=== PATIENT | male | born 1955 | race Caucasian/White ===

== ENCOUNTER 2017-12-09 10:04 | Emergency (ER) | payer OTHER ==
[~2017-12-09] VITALS: Ht 172.7 cm; Wt 87.7 kg
[2017-12-09 10:11] VITALS: BP 139/82
[2017-12-09] MEDS ORDERED: ibuprofen tablet 400 MG TABLET PO ONE (11:10)
[2017-12-09] MEDS ORDERED: HYDR-4353 PO (11:15)
== END 2017-12-09 12:09 | disposition home or self-care (01) ==
LOC: ER 10:04
DX: S52.591A Other fractures of lower end of right radius, initial encounter for closed fracture (principal); S52.611A Displaced fracture of right ulna styloid process, initial encounter for closed fracture; I10 Essential (primary) hypertension; W17.89XA Other fall from one level to another, initial encounter; Y93.89 Activity, other specified; Y92.89 Other specified places as the place of occurrence of the external cause; Y99.9 Unspecified external cause status
CPT/HCPCS: 29125; 71045; 73110; 99284

== ENCOUNTER 2019-03-22 13:01 | Inpatient (IN) | payer BC, MEDICARE ==
[~2019-03-22] VITALS: Ht 172.7 cm; Wt 102.3 kg
[2019-03-22 13:26] LABS: BASOPHILS # (AUTO) 0.1 X10'3 (0-0.2); BASOPHILS % (AUTO) 0.7 % (0-1); EOSINOPHILS # (AUTO) 0.1 X10'3 (0-0.9); EOSINOPHILS % (AUTO) 1.2 % (0-6); HEMOGLOBIN 17.6 g/dl (14.0-17.9); LYMPHOCYTES # (AUTO) 1.7 X10'3 (1.1-4.8); LYMPHOCYTES % (AUTO) 18.1 % (21-51); MEAN CORPUSCULAR HEMOGLOBIN 28.7 PG (27.0-31.0); MEAN CORPUSCULAR HGB CONC 34.6 g/dL (33.0-36.5); MEAN PLATELET VOLUME 8.8 FL (7.4-10.4); MONOCYTES # (AUTO) 0.7 X10'3 (0-0.9); NEUTROPHILS # (AUTO) 6.7 X10'3 (1.8-7.7); PLATELET COUNT 209 X10'3 (140-440); RED BLOOD COUNT 6.14 X10'6 (4.70-6.10); RED CELL DISTRIBUTION WIDTH 13.4 % (11.5-14.5); WHITE BLOOD COUNT 9.3 X10'3 (4.5-11.0)
[2019-03-22] MEDS ORDERED: heparin 10,000 units/1 ML INJ IV ONE ×3 (14:00→16:00)
[2019-03-22 14:15] LABS: PARTIAL THROMBOPLASTIN TIME 28 SECONDS (22-32)
[2019-03-22 14:22] LABS: ALANINE AMINOTRANSFERASE 62 U/L (12-78); ALBUMIN 4.3 G/DL (3.4-5.0); ALBUMIN/GLOBULIN RATIO 1.2 (1.1-1.5); ALKALINE PHOSPHATASE 70 IU/L (46-116); ANION GAP 11 (8-16); ASPARTATE AMINO TRANSFERASE 38 U/L (10-37); BILIRUBIN,TOTAL 0.6 MG/DL (0.1-1.0); BLOOD UREA NITROGEN 13 MG/DL (7-18); BUN/CREATININE RATIO 12.7 (5.4-32.0); CALCIUM 9.4 MG/DL (8.5-10.1); CHLORIDE 99 MMOL/L (99-107); CREATININE 1.02 MG/DL (0.60-1.10); GLUCOSE 109 MG/DL (70-104); POTASSIUM 3.9 MMOL/L (3.5-5.1); SODIUM 136 MMOL/L (135-145); TOTAL CARBON DIOXIDE 25.7 MMOL/L (24-32); eGFR 73 ML/MIN
[2019-03-22] MEDS: heparin 25,000 UNIT/250ml bag 250 ML IV SCH ×2 (14:29→22:30)
[2019-03-22] MEDS ORDERED: FLO0.4C PO ×2 (14:42→14:43)
[2019-03-22] MEDS ORDERED: IBUP-1986 PO ×2 (14:42→14:43)
[2019-03-22] MEDS ORDERED: FINA5TAB12 PO ×2 (14:42→14:43)
[2019-03-22] MEDS ORDERED: LISI1TAB28 PO ×2 (14:42→14:43)
[2019-03-22] MEDS ORDERED: aspirin 325mg tablet PO ONE (14:55)
[2019-03-22] MEDS ORDERED: metoprolol tartrate 50mg tablet PO ONE (14:55)
[2019-03-22] MEDS ORDERED: heparin 25,000 UNIT/250ml bag 250 ML IV SCH (15:59)
[2019-03-22] MEDS ORDERED: ipratropium/albuterol 3ml nebule NEB PRN (16:00)
[2019-03-22] MEDS ORDERED: haloperidol 5mg tablet PO PRN (16:00)
[2019-03-22] MEDS ORDERED: acetaminophen 325mg tablet PO PRN (16:00)
[2019-03-22] MEDS ORDERED: mag hydrox/Alum hydrox/simeth 30ml oral suspension PO PRN (16:00)
[2019-03-22] MEDS ORDERED: potassium Cl 20 mEq SR tablet PO PRN ×4 (16:00→19:20)
[2019-03-22] MEDS ORDERED: heparin 10,000 units/1 ML INJ IV PRN (16:00)
[2019-03-22] MEDS ORDERED: magnesium 4gm in 100ml NS 100 ML IV PRN ×2 (16:00→19:20)
[2019-03-22] MEDS ORDERED: haloperidol lactate 5mg/ml inj IM PRN (16:00)
[2019-03-22] MEDS ORDERED: magnesium Cl slow-release 64mg tablet PO PRN ×2 (16:00→19:20)
[2019-03-22] MEDS ORDERED: LORazepam 2 mg/ml vial IV PRN (16:00)
[2019-03-22] MEDS ORDERED: morphine 2 MG/ML inj. syringe IV PRN ×2 (16:00)
[2019-03-22] MEDS ORDERED: ondansetron/PF 4mg/2ml inj IV PRN (16:00)
[2019-03-22] MEDS ORDERED: magnesium 2GM in 50ml NS 50 ML IV PRN (16:00)
[2019-03-22] MEDS ORDERED: potassium CL 10mEq/100ml bag 100 ML IV PRN ×3 (16:00→19:20)
[2019-03-22] MEDS ORDERED: thiamine inj. 100 MG in normal saline 100ml IV soln 100 ML IV ONE (16:00)
--- NOTE | 2019-03-22 16:41 | NUR ---
SECOND IV STARTED AND SECOND TROPONIN DRAWN.
--- NOTE | 2019-03-22 16:57 | NUR ---
SECOND TROPONIN BACK AT 4.[address] PRESCOTT NOTIFIED, DR. RYANN ORTEGA AND HIS OFFICE GIVEN THE DETAILS FOR HIM TO CALL ME BACK.
--- NOTE | 2019-03-22 17:01 | NUR ---
DR. GARZON RETURNED CALL, NOTIFIED OF TROPONINS. NO NEW ORDERS.
[2019-03-22 18:00] VITALS: BP 132/82
[2019-03-22] MEDS: atorvastatin 20mg tablet PO SCH (18:24)
--- NOTE | 2019-03-22 18:43 | NUR ---
Problems reprioritized. Patient report given, questions answered & plan of care reviewed with Libia MAY.
--- NOTE | 2019-03-22 19:18 | NUR ---
MADAN ORDERED NPO AFTER MIDNIGHT, PT SIGN CONSENT FOR CATH WITH POSSIBLE STENT, AND K+ AND MAG REPLACEMENT TO OVER 4 AND 2.
[2019-03-22] MEDS ORDERED: K and/or MAG REPLACEMENT MC SCH (19:20)
[2019-03-22] MEDS: K and/or MAG REPLACEMENT MC SCH (20:00)
[2019-03-22] MEDS: tamsulosin 0.4mg capsule PO SCH (21:54)
[2019-03-22] MEDS: docusate sod 100mg capsule PO SCH (21:54)
[2019-03-22] MEDS: metoprolol tartrate 50mg tablet PO SCH (21:54)
[2019-03-22 22:00] VITALS: BP 120/87
[2019-03-22] MEDS: tirofiban 5mg in NS 100mL 100 ML IV SCH ×2 (22:12→23:26)
[2019-03-22] MEDS: heparin 10,000 units/1 ML INJ IV PRN (22:33)
[2019-03-23] VITALS (12 sets, daily range): BP systolic 93–118; BP diastolic 49–76
[2019-03-23 03:05] LABS: BASOPHILS # (AUTO) 0.1 X10'3 (0-0.2); BASOPHILS % (AUTO) 0.9 % (0-1); EOSINOPHILS # (AUTO) 0.2 X10'3 (0-0.9); EOSINOPHILS % (AUTO) 1.9 % (0-6); HEMATOCRIT 48.8 % (42.0-52.0); HEMOGLOBIN 16.6 g/dl (14.0-17.9); LYMPHOCYTES # (AUTO) 4.1 X10'3 (1.1-4.8); LYMPHOCYTES % (AUTO) 41.8 % (21-51); MEAN CORPUSCULAR HEMOGLOBIN 28.8 PG (27.0-31.0); MEAN CORPUSCULAR HGB CONC 34.1 g/dL (33.0-36.5); MEAN CORPUSCULAR VOLUME 84.5 FL (78-98); MEAN PLATELET VOLUME 9.1 FL (7.4-10.4); MONOCYTES # (AUTO) 0.8 X10'3 (0-0.9); MONOCYTES % (AUTO) 7.9 % (2-12); NEUTROPHILS # (AUTO) 4.7 X10'3 (1.8-7.7); NEUTROPHILS % (AUTO) 47.5 % (42-75); PLATELET COUNT 199 X10'3 (140-440); RED BLOOD COUNT 5.77 X10'6 (4.70-6.10); RED CELL DISTRIBUTION WIDTH 13.6 % (11.5-14.5); WHITE BLOOD COUNT 9.8 X10'3 (4.5-11.0)
[2019-03-23 03:22] LABS: ALANINE AMINOTRANSFERASE 52 U/L (12-78); ALBUMIN 3.7 G/DL (3.4-5.0); ALBUMIN/GLOBULIN RATIO 1.1 (1.1-1.5); ALKALINE PHOSPHATASE 57 IU/L (46-116); ANION GAP 12 (8-16); ASPARTATE AMINO TRANSFERASE 51 U/L (10-37); BILIRUBIN,TOTAL 0.5 MG/DL (0.1-1.0); BLOOD UREA NITROGEN 12 MG/DL (7-18); BUN/CREATININE RATIO 14.1 (5.4-32.0); CALCIUM 8.8 MG/DL (8.5-10.1); CHLORIDE 102 MMOL/L (99-107); CREATININE 0.85 MG/DL (0.60-1.10); GLUCOSE 88 MG/DL (70-104); SODIUM 137 MMOL/L (135-145); eGFR 90 ML/MIN
[2019-03-23 03:24] LABS: AMYLASE 30 U/L (25-115); CHOL/HDL RATIO 5.1 (0.00-4.99); CHOLESTEROL 195 MG/DL (0-200); HDL CHOLESTEROL 38 MG/DL (35-60); LDL CHOLESTEROL 125 MG/DL (50-100); LIPASE 149 U/L (73-393); MAGNESIUM 1.9 MG/DL (1.5-2.4); PHOSPHORUS 4.3 MG/DL (2.3-4.5); TRIGLYCERIDES 232 MG/DL (20-135)
[2019-03-23 03:29] LABS: POTASSIUM 3.8 MMOL/L (3.5-5.1)
[2019-03-23] MEDS: tirofiban 5mg in NS 100mL 100 ML IV SCH (04:48)
[2019-03-23] MEDS: heparin 10,000 units/1 ML INJ IV PRN (05:59)
[2019-03-23] MEDS: heparin 25,000 UNIT/250ml bag 250 ML IV SCH (06:04)
[2019-03-23] MEDS ORDERED: verapamil 2.5 mg/ml inj IV ONE (06:06)
[2019-03-23] MEDS ORDERED: LIDOcaine 1% (10mg/ml)w/preservative injection 20ml MDV ONE (06:06)
[2019-03-23] MEDS ORDERED: midazolam 2 mg/2 ml injection ONE (06:06)
[2019-03-23] MEDS ORDERED: nitroGLYCERIN-Tridil 50MG/D5W 250 ML IV ONE (06:06)
[2019-03-23] MEDS ORDERED: fentaNYL/PF 50MCG/1 ML 2ML syringe ONE (06:06)
[2019-03-23] MEDS ORDERED: heparin 1,000unit/ml 10ml vial 10 ML ONE (06:06)
[2019-03-23] MEDS ORDERED: iohexol 350 MG/ML 50ML vial IV ONE (06:07)
[2019-03-23] MEDS ORDERED: iohexol 350MG/ML 100ml bottle IV ONE ×3 (06:07→07:49)
--- NOTE | 2019-03-23 06:30 | NUR ---
Patient in room MED 311. I have received report from Libia MAY and had the opportunity to ask questions and assume patient care.
[2019-03-23] MEDS ORDERED: FOLIC ACID IV SCH (08:00)
[2019-03-23] MEDS: K and/or MAG REPLACEMENT MC SCH ×2 (08:00→20:00)
[2019-03-23] MEDS: nitroGLYCERIN 0.4mg/hour patch TD SCH ×2 (08:00→11:39)
[2019-03-23] MEDS: docusate sod 100mg capsule PO SCH ×2 (08:00→20:00)
[2019-03-23] MEDS ORDERED: MVI, adult No.4 with vit. K 10 ML in dextrose 5% water 500ml 500 ML IV SCH ×2 (08:00)
[2019-03-23] MEDS ORDERED: THIAMINE IV SCH (08:00)
[2019-03-23] MEDS ORDERED: HYDROchlorothiazide 25mg tablet PO SCH (08:00)
[2019-03-23] MEDS: atorvastatin 20mg tablet PO SCH (08:00)
[2019-03-23] MEDS ORDERED: lisinopril 20mg tablet PO SCH (08:00)
[2019-03-23] MEDS ORDERED: NORMAL SALINE IV SCH (08:00)
[2019-03-23] MEDS ORDERED: ticagrelor 90mg tablet ONE (08:05)
--- NOTE | 2019-03-23 09:00 | NUR ---
All ordered am medications given after pt returned from laboratory sampler.
[2019-03-23] MEDS: finasteride 5mg tablet PO SCH (11:35)
[2019-03-23] MEDS: metoprolol tartrate 50mg tablet PO SCH ×2 (11:37→21:09)
[2019-03-23] MEDS: tamsulosin 0.4mg capsule PO SCH ×2 (11:39→21:12)
--- NOTE | 2019-03-23 12:00 | NUR ---
Presure Wrist band to R wrist d/jyothi. No s/s of complications. No hematoma. Pt has tolerated all well. Sterile gauze placed over covered with Opsite. Will continue to monitor for bleeding.
[2019-03-23] MEDS: aspirin 81mg tab.chew PO SCH (12:14)
[2019-03-23] MEDS ORDERED: proCHLORperazine 10 MG/2 ml inj IV PRN (12:15)
[2019-03-23] MEDS ORDERED: cyclobenzaprine 10mg tablet PO PRN (12:15)
[2019-03-23] MEDS ORDERED: OXAZEpam 15mg capsule PO PRN (12:15)
[2019-03-23] MEDS ORDERED: acetaminophen 325mg tablet PO PRN (12:15)
[2019-03-23] MEDS ORDERED: HYDROcodone/acetaminophen 10/325mg tab PO PRN ×2 (12:15)
[2019-03-23] MEDS ORDERED: magnesium hydroxide 30ml (MOM) UD suspension PO PRN (12:15)
--- NOTE | 2019-03-23 13:12 | NUR ---
PAGER ID: [phone] MESSAGE: [phone]: JOEL Mendoza ordered nitro patch on admit. patient currently CP free, BP well controlled 100s/60s nurse Azalia [phone]
--- NOTE | 2019-03-23 13:12 | NUR ---
Dr. Ware called back - new order received: d/c nitro patch
--- NOTE | 2019-03-23 18:00 | NUR ---
Patient in room MED 311. I have received report from JOAO MAY and had the opportunity to ask questions and assume patient care.
[2019-03-23] MEDS ORDERED: docusate sod 100mg capsule PO SCH (20:00)
[2019-03-23] MEDS: carVEDilol 3.125mg tablet PO SCH (21:06)
[2019-03-24 02:00] VITALS: BP 101/67
[2019-03-24 04:44] LABS: BASOPHILS # (AUTO) 0.1 X10'3 (0-0.2); BASOPHILS % (AUTO) 0.7 % (0-1); EOSINOPHILS # (AUTO) 0.2 X10'3 (0-0.9); EOSINOPHILS % (AUTO) 1.7 % (0-6); HEMATOCRIT 47.1 % (42.0-52.0); HEMOGLOBIN 16.1 g/dl (14.0-17.9); LYMPHOCYTES # (AUTO) 3.2 X10'3 (1.1-4.8); LYMPHOCYTES % (AUTO) 34.1 % (21-51); MEAN CORPUSCULAR HEMOGLOBIN 28.7 PG (27.0-31.0); MEAN CORPUSCULAR HGB CONC 34.2 g/dL (33.0-36.5); MEAN PLATELET VOLUME 8.9 FL (7.4-10.4); MONOCYTES # (AUTO) 0.9 X10'3 (0-0.9); MONOCYTES % (AUTO) 9.2 % (2-12); NEUTROPHILS # (AUTO) 5.2 X10'3 (1.8-7.7); NEUTROPHILS % (AUTO) 54.3 % (42-75); PLATELET COUNT 193 X10'3 (140-440); RED CELL DISTRIBUTION WIDTH 13.5 % (11.5-14.5); WHITE BLOOD COUNT 9.5 X10'3 (4.5-11.0)
[2019-03-24 04:57] LABS: ALANINE AMINOTRANSFERASE 49 U/L (12-78); ALBUMIN 3.7 G/DL (3.4-5.0); ALBUMIN/GLOBULIN RATIO 1.1 (1.1-1.5); ALKALINE PHOSPHATASE 57 IU/L (46-116); AMYLASE 28 U/L (25-115); ANION GAP 8 (8-16); ASPARTATE AMINO TRANSFERASE 37 U/L (10-37); BILIRUBIN,TOTAL 0.6 MG/DL (0.1-1.0); BLOOD UREA NITROGEN 11 MG/DL (7-18); BUN/CREATININE RATIO 12.8 (5.4-32.0); CALCIUM 8.9 MG/DL (8.5-10.1); CHLORIDE 103 MMOL/L (99-107); CREATININE 0.86 MG/DL (0.60-1.10); GLUCOSE 85 MG/DL (70-104); LIPASE 137 U/L (73-393); PHOSPHORUS 4.1 MG/DL (2.3-4.5); POTASSIUM 4.1 MMOL/L (3.5-5.1); SODIUM 136 MMOL/L (135-145); TOTAL CARBON DIOXIDE 24.8 MMOL/L (24-32); eGFR 89 ML/MIN
[2019-03-24 06:00] VITALS: BP 106/61
--- NOTE | 2019-03-24 06:15 | NUR ---
Patient in room MED 311. I have received report from YADIRA Reza and had the opportunity to ask questions and assume patient care.
--- NOTE | 2019-03-24 06:41 | NUR ---
Problems reprioritized. Patient report given, questions answered & plan of care reviewed with GUADALUPE MAY.
--- NOTE | 2019-03-24 06:55 | NUR ---
81mg dose of ASA appears to have not given on 03/23/19. I non-administered on eMAR. The eMAR is still showing Aggrastat as well. Patient is no longer receiving will d/c order.
[2019-03-24] MEDS ORDERED: folic acid 1mg tablet PO SCH (08:00)
[2019-03-24] MEDS ORDERED: thiamine 100mg tablet PO SCH (08:00)
[2019-03-24] MEDS ORDERED: ticagrelor 90mg tablet PO SCH (08:00)
[2019-03-24] MEDS ORDERED: lisinopril 10 MG tablet PO SCH (08:00)
[2019-03-24] MEDS ORDERED: multivitamins, therapeutics tablet PO SCH (08:00)
[2019-03-24] MEDS: aspirin 81mg tab.chew PO SCH (08:14)
[2019-03-24] MEDS: docusate sod 100mg capsule PO SCH (08:15)
[2019-03-24] MEDS: carVEDilol 3.125mg tablet PO SCH (08:16)
[2019-03-24] MEDS: tamsulosin 0.4mg capsule PO SCH (08:17)
[2019-03-24] MEDS: atorvastatin 20mg tablet PO SCH (08:18)
[2019-03-24] MEDS: finasteride 5mg tablet PO SCH (08:18)
[2019-03-24 08:22] VITALS: BP_SYST 101
[2019-03-24] MEDS: metoprolol tartrate 50mg tablet PO SCH (08:22)
[2019-03-24] MEDS: K and/or MAG REPLACEMENT MC SCH (08:28)
--- NOTE | 2019-03-24 10:31 | NUR ---
PAGER ID: [phone] MESSAGE: Dr. Ware, pt in , [facility] rm 11 on ACCE, ready to be d/c walke d 600 ft, asymptomatic, no CP. Waiting for d/c orders at your convenience. Thank you, Della Golden [phone]
[2019-03-24] MEDS ORDERED: ATOR20TA66 PO (11:23)
[2019-03-24] MEDS ORDERED: TICA90TA PO (11:23)
[2019-03-24] MEDS ORDERED: ASPI-1265 PO (11:23)
[2019-03-24] MEDS ORDERED: METO50TA16 PO (11:23)
--- NOTE | 2019-03-24 12:00 | NUR ---
All discharge instructions given in written form and verbally to the patient and his spouse. They both state that they have no questions regarding these instructions. The PIV was removed and the catheter was intact. Patient tolerated well and hemostasis achieved. All patient personal items taken with the patient and the patient was alert and oriented and left in stable condition by way of w/c/ Prescriptions called into [facility] pharmacy.
[2019-03-24] MEDS ORDERED: LORazepam 2 mg/ml vial IV PRN (16:00)
[2019-03-24] MEDS ORDERED: LORazepam 1 MG tablet PO PRN (16:00)
[2019-03-26] MEDS ORDERED: LORazepam 1 MG tablet PO PRN (16:00)
[2019-03-26] MEDS ORDERED: LORazepam 2 mg/ml vial IV PRN (16:00)
== END 2019-03-24 12:15 | disposition home or self-care (01) | DRG 247 ==
LOC: ER 13:01 → ED HOLD 16:08 → MED 3N 17:55
PROVIDERS: ADMIT Family Medicine; ATTEND Internal Medicine
PROC: 4A023N7 Measurement of Cardiac Sampling and Pressure, Left Heart, Percutaneous Approach (ICD-10-PCS; principal; 2019-03-23)
PROC: 027034Z Dilation of Coronary Artery, One Artery with Drug-eluting Intraluminal Device, Percutaneous Approach (ICD-10-PCS; 2019-03-23)
PROC: B2111ZZ Fluoroscopy of Multiple Coronary Arteries using Low Osmolar Contrast (ICD-10-PCS; 2019-03-23)
PROC: B2151ZZ Fluoroscopy of Left Heart using Low Osmolar Contrast (ICD-10-PCS; 2019-03-23)
DX: I21.4 Non-ST elevation (NSTEMI) myocardial infarction (principal); F17.210 Nicotine dependence, cigarettes, uncomplicated; I10 Essential (primary) hypertension; E78.5 Hyperlipidemia, unspecified; I20.0 Unstable angina; F10.20 Alcohol dependence, uncomplicated; J44.9 Chronic obstructive pulmonary disease, unspecified; N40.0 Benign prostatic hyperplasia without lower urinary tract symptoms; Z79.02 Long term (current) use of antithrombotics/antiplatelets; Z79.82 Long term (current) use of aspirin; Z79.899 Other long term (current) drug therapy; Z82.49 Family history of ischemic heart disease and other diseases of the circulatory system; Z82.5 Family history of asthma and other chronic lower respiratory diseases; Z83.3 Family history of diabetes mellitus; Z71.6 Tobacco abuse counseling; Z71.41 Alcohol abuse counseling and surveillance of alcoholic
CPT/HCPCS: 93306; 93458; 96374; 99291; C9600; 36415; 71045; 80053; 80061; 82150; 83690; 83735; 84100; 84484; 85025; 85347; 85610; 85730; 87081; 93005; 94640; 94760; 99152; 99153; A4620; A5120; C1725; C1769; C1874; C1894; G0378; J1644; J2001; J2250; J3010; J3246; J3411; J3490; J7030; J7060; Q9967

== ENCOUNTER 2020-07-27 21:26 | Inpatient (IN) | payer BC, MEDICARE ==
[~2020-07-27] VITALS: Ht 172.7 cm; Wt 65.9 kg
[~2020-07-27 21:26] MED LIST: ASPI-1265 PO; ATOR20TA66 PO; FINA5TAB12 PO; FLO0.4C PO; LISI1TAB51 PO; METO50TA16 PO; TICA90TA PO; temazepam 15mg capsule PO PRN
[2020-07-27 22:05] LABS: BASOPHILS % (AUTO) 0.4 % (0-1); EOSINOPHILS # (AUTO) 0.1 X10'3 (0-0.9); EOSINOPHILS % (AUTO) 1.2 % (0-6); HEMATOCRIT 47.5 % (42.0-52.0); HEMOGLOBIN 16.1 g/dl (14.0-17.9); LYMPHOCYTES # (AUTO) 1.5 X10'3 (1.1-4.8); LYMPHOCYTES % (AUTO) 15.1 % (21-51); MEAN CORPUSCULAR HGB CONC 33.9 g/dL (33.0-36.5); MEAN CORPUSCULAR VOLUME 82.8 FL (78-98); MEAN PLATELET VOLUME 9.1 FL (7.4-10.4); MONOCYTES # (AUTO) 0.8 X10'3 (0-0.9); MONOCYTES % (AUTO) 7.7 % (2-12); NEUTROPHILS # (AUTO) 7.8 X10'3 (1.8-7.7); NEUTROPHILS % (AUTO) 75.6 % (42-75); PLATELET COUNT 192 X10'3 (140-440); RED BLOOD COUNT 5.74 X10'6 (4.70-6.10); WHITE BLOOD COUNT 10.3 X10'3 (4.5-11.0)
[2020-07-27 22:08] LABS: ALANINE AMINOTRANSFERASE 37 U/L (12-78); ALBUMIN 3.8 G/DL (3.4-5.0); ALBUMIN/GLOBULIN RATIO 1.2 (1.1-1.5); ALKALINE PHOSPHATASE 66 IU/L (46-116); ANION GAP 7 (8-16); ASPARTATE AMINO TRANSFERASE 20 U/L (10-37); BILIRUBIN,TOTAL 0.5 MG/DL (0.1-1.0); BLOOD UREA NITROGEN 12 MG/DL (7-18); BUN/CREATININE RATIO 11.7 (5.4-32.0); CALCIUM 8.9 MG/DL (8.5-10.1); CHLORIDE 102 MMOL/L (99-107); CREATININE 1.03 MG/DL (0.60-1.10); GLUCOSE 100 MG/DL (70-104); POTASSIUM 3.5 MMOL/L (3.5-5.1); SODIUM 137 MMOL/L (135-145); TOTAL CARBON DIOXIDE 27.7 MMOL/L (24-32); eGFR 72 ML/MIN
--- NOTE | 2020-07-27 22:17 | NUR ---
RELIEVING RN FOR BREAK, PT IS RESTING QUIETLY ON GURRAQUEL, FAMILY AT BEDSIDE, WAITING FOR LAB RESULTS
--- NOTE | 2020-07-27 23:32 | NUR ---
Patient stated that he did not want to be admitted to the hospital and asked that the MD discharge him rather than him leaving AMA. MD notified. She stated that she would not discharge the patient and if he wanted to leave, it would be AMA. Patient notified of MD decision and agreed to be admitted.
[2020-07-27] MEDS ORDERED: dextrose 50%-water 50ml dispensing syringe IV PRN (23:35)
[2020-07-27] MEDS ORDERED: LORazepam 2 mg/ml vial IV PRN (23:35)
[2020-07-27] MEDS ORDERED: ondansetron/PF 4mg/2ml inj IV PRN (23:35)
[2020-07-27] MEDS ORDERED: potassium Cl 20 mEq SR tablet PO PRN ×2 (23:35)
[2020-07-27] MEDS ORDERED: magnesium Cl slow-release 64mg tablet PO PRN (23:35)
[2020-07-27] MEDS ORDERED: mag hydrox/Alum hydrox/simeth 30ml oral suspension PO PRN (23:35)
[2020-07-27] MEDS ORDERED: LORazepam 1 MG tablet PO PRN (23:35)
[2020-07-27] MEDS ORDERED: potassium Cl 40MEQ/1/2NS 520ml 520 ML IV PRN ×2 (23:35)
[2020-07-27] MEDS ORDERED: acetaminophen 325mg tablet PO PRN ×2 (23:35)
[2020-07-27] MEDS ORDERED: magnesium 4gm in 100ml NS 100 ML IV PRN (23:35)
[2020-07-27] MEDS ORDERED: magnesium 2GM in 50ml NS 50 ML IV PRN (23:35)
[2020-07-27] MEDS: normal saline 1000ml 1,000 ML IV SCH (23:35)
[2020-07-27] MEDS ORDERED: magnesium hydroxide 30ml (MOM) UD suspension PO PRN (23:35)
[2020-07-28 03:15] LABS: ALANINE AMINOTRANSFERASE 35 U/L (12-78); ALBUMIN 3.5 G/DL (3.4-5.0); ALBUMIN/GLOBULIN RATIO 1.1 (1.1-1.5); ANION GAP 10 (8-16); ASPARTATE AMINO TRANSFERASE 15 U/L (10-37); BILIRUBIN,TOTAL 0.5 MG/DL (0.1-1.0); BLOOD UREA NITROGEN 12 MG/DL (7-18); BUN/CREATININE RATIO 14.6 (5.4-32.0); CALCIUM 8.8 MG/DL (8.5-10.1); CHLORIDE 101 MMOL/L (99-107); CREATININE 0.82 MG/DL (0.60-1.10); GLUCOSE 120 MG/DL (70-104); POTASSIUM 3.3 MMOL/L (3.5-5.1); SODIUM 138 MMOL/L (135-145); TOTAL CARBON DIOXIDE 27.4 MMOL/L (24-32); TOTAL PROTEIN 6.8 G/DL (6.4-8.2); eGFR > 90 ML/MIN
[2020-07-28 03:19] LABS: MAGNESIUM 2.2 MG/DL (1.5-2.4)
[2020-07-28 03:31] LABS: ALKALINE PHOSPHATASE 64 IU/L (46-116)
[2020-07-28 05:36] LABS: BASOPHILS # (AUTO) 0.1 X10'3 (0-0.2); BASOPHILS % (AUTO) 0.7 % (0-1); EOSINOPHILS # (AUTO) 0.2 X10'3 (0-0.9); HEMATOCRIT 46.4 % (42.0-52.0); HEMOGLOBIN 15.9 g/dl (14.0-17.9); LYMPHOCYTES # (AUTO) 2.8 X10'3 (1.1-4.8); LYMPHOCYTES % (AUTO) 29.3 % (21-51); MEAN CORPUSCULAR HEMOGLOBIN 28.1 PG (27.0-31.0); MEAN CORPUSCULAR HGB CONC 34.2 g/dL (33.0-36.5); MEAN CORPUSCULAR VOLUME 82.3 FL (78-98); MONOCYTES # (AUTO) 0.9 X10'3 (0-0.9); MONOCYTES % (AUTO) 9.1 % (2-12); NEUTROPHILS # (AUTO) 5.6 X10'3 (1.8-7.7); NEUTROPHILS % (AUTO) 58.9 % (42-75); PLATELET COUNT 183 X10'3 (140-440); RED BLOOD COUNT 5.64 X10'6 (4.70-6.10); RED CELL DISTRIBUTION WIDTH 14.1 % (11.5-14.5); WHITE BLOOD COUNT 9.4 X10'3 (4.5-11.0)
[2020-07-28] MEDS ORDERED: K and/or MAG REPLACEMENT MC SCH (08:00)
[2020-07-28] MEDS ORDERED: heparin, porcine 5000 units/ml vial SQ SCH (08:00)
[2020-07-28] MEDS: nicotine 14mg patch - 24hr TD SCH ×2 (08:59→09:12)
[2020-07-28] MEDS: normal saline 1000ml 1,000 ML IV SCH (09:07)
[2020-07-28 11:00] VITALS: BP 144/92
[2020-07-28] MEDS ORDERED: POTA20TA19 PO (11:23)
--- NOTE | 2020-07-31 14:20 | NUR ---
CASE MANAGEMENT DISCHARGE FOLLOW UP: T/c to pt, pt answered but could not hear anything from pt beyond "natalio?" Will attempt to contact his . T/c to pt's , no answer, left VM requesting callback. Addendum: 08/01/20 at 1139 by Angle Graham RN 08/01/2020@7592 Received return call from pt's . Reports that pt is doing okay, having major headaches (has been going on for a long time and his PCP is aware), dizziness x1 month, weakness; denies pt c/o CP, SOB. She states pt saw his PCP this morning and that she was not concerned by pt's symptoms as pt had CT of head done in September, pt's expresses concern that pt may have a brain bleed and no one is checking it. States no on in checked her husbands head when he was in the hospital, would like to know why as she states that she "dropped him" prior to starting chest compressions. Per pt's , pt has been having headaches continually prior to this hospital admission. Upon inquiry, states that she is not sure if pt has any visual changes associated with headache. She states that pt to have Xray of back tomorrow followed by 6 weeks of PT, and at that point if there is no improvement pt's PCP will order MRI. She states that pt has had BPs that have been ranging normal to high (labile), wants pt to keep a log. Advised that when pt's headache is really bad to check BP and make a notation in his BP log of BP and associated pain scale for headache. She states that pt has been taking 400mg Ibuprofen for headaches up to 800mg if really bad, however this is not helping anymore, took some advil last night, even after that pain level is high. Pt was given toradol this AM which she states helped for a little bit but it was back by the time the pt got back home after blood draw. Verbalizes understanding of s/sx requiring further evaluation/emergent assistance. She states that neither she or the pt were aware that any medication was ordered for the pt, or that discharging DO wanted pt to take 15 days of Kdur for potassium replacement followed by BMP in 1 week, states never received notification from pharmacy that medication was available for pickup, will follow up with pharmacy. States that she will go clam picker pt's medications on the way home from work today. Verbalizes understanding of the importance in making/keeping follow-up appointments, states that if pt's headaches become intolerable he will bring pt back to hospital. She states will also talk to pt's PCP about a possible referral to a neurologist, she states that she was recently told by pt's PCP that pt has a nodule at the back of his head. Upon inquiry of pt's hospitalization, pt's states "your hospitalists suck." She states that the admitting hospitalist was rude and has terrible bedside manner, that she didn't ask about the scenario leading up to pt's ED visit, not why pt passed out, just told him that he was dehydrated and smoked marijuana. She states that she told the hospitalist that the pt is [place] and can read lips but that hospitalist refused to take off mask to communicate with pt. She states that the male hospitalist who attended pt also has bad bedside manner. She states that "[she] doesn't like [facility], it's filthy" which is why they come to [facility], however she is "shocked by the hospitalist panel." Per pt's , she does not ever want to deal with the female hospitalist who attended to pt. She does state that the female ER doctor was very nice. States no further questions/concerns at this time, will continue to f/u with pt's PCP. Addendum: 08/01/20 at 1146 by Angle Graham RN 08/01/20@1142 T/c to pharmacy, Rx ready for clam picker.
== END 2020-07-28 12:35 | disposition home or self-care (01) | DRG 312 ==
LOC: ER 21:27 → ED HOLD 23:31 → PCU 3S 07-28 08:49
PROVIDERS: ADMIT Internal Medicine; ATTEND Family Medicine
DX: I95.2 Hypotension due to drugs (principal); E87.1 Hypo-osmolality and hyponatremia; E78.5 Hyperlipidemia, unspecified; E87.6 Hypokalemia; F12.90 Cannabis use, unspecified, uncomplicated; F17.210 Nicotine dependence, cigarettes, uncomplicated; I10 Essential (primary) hypertension; I49.3 Ventricular premature depolarization; T46.3X5A Adverse effect of coronary vasodilators, initial encounter; I25.10 Atherosclerotic heart disease of native coronary artery without angina pectoris; I25.2 Old myocardial infarction; Z79.82 Long term (current) use of aspirin; Z79.899 Other long term (current) drug therapy; Z83.3 Family history of diabetes mellitus; Z82.49 Family history of ischemic heart disease and other diseases of the circulatory system; Z71.6 Tobacco abuse counseling; Y92.89 Other specified places as the place of occurrence of the external cause
CPT/HCPCS: 36415; 71045; 80053; 83735; 84484; 85025; 93005; 93306; 99285; G0378; J7030

== ENCOUNTER 2020-09-24 09:43 | Outpatient (CLI) | payer MEDICARE, BC ==
[2020-09-24] VITALS (8 sets, daily range): BP systolic 109–133; BP diastolic 62–71
[~2020-09-24] VITALS: Ht 172.7 cm; Wt 90.7 kg
[~2020-09-24 09:43] MED LIST changes: +POTA20TA19 PO; -temazepam 15mg capsule PO PRN
[2020-09-24] MEDS ORDERED: regadenoson 0.4mg/5ml syringe IV ONE (10:40)
[2020-09-24] MEDS ORDERED: nitroGLYCERIN 0.4mg SUBLingual tab SL PRN (10:40)
[2020-09-24] MEDS ORDERED: aminophylline 250mg/10ml inj. IV PRN (10:40)
== END 2020-09-24 23:59 | disposition home or self-care (01) ==
LOC: RAD 09:43
PROVIDERS: ATTEND Internal Medicine Cardiovascular Disease
DX: I25.10 Atherosclerotic heart disease of native coronary artery without angina pectoris (principal)
CPT/HCPCS: 78452; 93017; A9500; J0280; J2785